=== PATIENT | male | born 1960 | race Caucasian/White ===

== ENCOUNTER 2017-09-06 05:32 | Inpatient (IN) | payer BC ==
[~2017-09-06] VITALS: Ht 182.9 cm; Wt 81.2 kg
[2017-09-06] MEDS ORDERED: METOPROLOL TARTRATE 25 MG TAB PO PRN (06:30)
[2017-09-06] MEDS ORDERED: CHLORHEXIDINE GLUCONATE 2 % 1 PACK (2 CLOTHS) TOPICAL PRN (06:30)
[2017-09-06] MEDS ORDERED: POVIDONE IODINE 7.5% SCRUB 118 ML BOTTLE TOPICAL SCH (06:30)
[2017-09-06] MEDS ORDERED: DEXAMETHASONE SOD PHOS 20 MG/5 ML VIAL IV SCH (06:30)
[2017-09-06] MEDS ORDERED: INSULIN HUMAN REGULAR 1,000 UNITS/10 ML VIAL SQ PRN (06:30)
[2017-09-06] MEDS ORDERED: SODIUM CHLORID 0.9% 500 ML IV PRN (06:30)
[2017-09-06] MEDS ORDERED: ceFAZolin 2 GM PREMIX 50 ML IV SCH (06:30)
[2017-09-06] MEDS ORDERED: CHLORHEXIDINE GLUCONATE 4% SOLN 120 ML BTL TOPICAL SCH (06:30)
[2017-09-06] MEDS ORDERED: LACTATED RINGER'S 1000 ML IV PRN (06:30)
[2017-09-06] MEDS ORDERED: POVIDONE IODINE 5% (ANTISEPSIS KIT) 4 APPLICATIONS EACH NARE PRN (06:30)
[2017-09-06] MEDS ORDERED: HYDR-3288 PO (06:59)
[2017-09-06] MEDS ORDERED: ONDANSETRON HCL 4 MG/2 ML VIAL IVP PRN (07:00)
[2017-09-06] MEDS ORDERED: ENOX40P SQ (07:00)
[2017-09-06] MEDS ORDERED: diphenhydrAMINE HCL 50 MG/ML VIAL IV PUSH PRN (07:00)
[2017-09-06] MEDS ORDERED: SODIUM CHLORIDE 0.9% FLUSH 5 ML FLUSH IVF PRN (07:00)
[2017-09-06] MEDS ORDERED: BISACODYL 10 MG SUPP RECTAL PRN (07:00)
[2017-09-06] MEDS ORDERED: ASPI81CH37 CHEW (07:00)
[2017-09-06] MEDS ORDERED: ACETAMINOPHEN/HYDROcodone 325 MG/7.5 MG TAB PO PRN (07:00)
[2017-09-06] MEDS ORDERED: Post-op Orders (for Pharmacy) MISC XX ONE (07:00)
[2017-09-06] MEDS ORDERED: MORPHINE SULFATE 4 MG/ML INJ IV PUSH PRN (07:00)
[2017-09-06] MEDS ORDERED: GENTAMICIN SULFATE 80 MG/2 ML VIAL ONE (07:02)
[2017-09-06] MEDS: VANCOMYCIN 1000 MG/NS 250 ML (for <70 kg) IV SCH ×2 (08:00)
[2017-09-06] MEDS ORDERED: ROPIVACAINE 0.5% PF INJ 30 ML VIAL ONE (08:04)
[2017-09-06] MEDS ORDERED: BUPIVACAINE HCL PF 0.5% 30 ML VIAL ONE (08:12)
[2017-09-06] MEDS ORDERED: DEXAMETHASONE SOD PHOS PF 10 MG/ML VIAL ONE (08:20)
[2017-09-06] MEDS ORDERED: TRANEXAMIC PERI-ARTICULAR 3,000 MG/NS 100 ML P-ARTICULR SCH ×2 (08:30)
[2017-09-06] MEDS ORDERED: ROPIVACAINE PERI-ARTICULAR INJECTION. P-ARTICULR SCH ×5 (08:30)
[2017-09-06] MEDS ORDERED: TRANEXAMIC ACID IV SCH (08:30)
[2017-09-06] MEDS ORDERED: SODIUM CHLORIDE 0.9% IV SCH (08:30)
[2017-09-06] MEDS: SODIUM CHLORIDE 0.9% FLUSH 5 ML FLUSH IVF SCH ×2 (09:00→20:46)
[2017-09-06] MEDS ORDERED: DO NOT ADM ANY ANTICOAGULANT DRUGS PRN (10:10)
--- NOTE | 2017-09-06 10:10 | MP ---
cc: MAGDALENA MOYA M.D. DATE OF SURGERY: 09/06/2017 PREOPERATIVE DIAGNOSIS Left knee osteoarthritis. POSTOPERATIVE DIAGNOSIS Left knee osteoarthritis. PROCEDURE Left total knee arthroplasty. SURGEON Dr. Magdalena Moya. FRUIT LOADER MACHINE OPERATOR Magdalena Hamilton PA-C. ANESTHESIA Spinal with an adductor canal femoral nerve block. ESTIMATED BLOOD LOSS 50 cc. TOURNIQUET TIME 34 minutes at 250 mmHg. COMPLICATIONS None. IMPLANTS USED DePuy Epomune size 7 posterior stabilized femoral component, size 8 rotating platform tibia baseplate, size 7 mm polyethylene tibial insert, size 41 patella. JUSTIFICATION This patient is a 57-year-old male with a history of severe end-stage osteoarthritis involving the left knee. He has severe disabling pain with standing, walking, ambulation and weightbearing activities and even severe pain at rest. He has failed greater than 3 months of nonoperative conservative treatment to include medication therapy, injections, ambulatory assisted aids, home exercise program and activity modification. The patient is not overweight. X-rays of the left knee revealed severe end-stage osteoarthritis with joint space narrowing, subchondral sclerosis, subchondral cysts, osteophyte formation and varus deformity. The patient was counseled as to the risks, benefits and alternatives to a total knee arthroplasty. The risks were discussed which include but are not limited to anesthesia, bleeding, infection, damage to nerves and blood vessels, pain, stiffness, failure of components, blood clot, pulmonary embolism and . The patient's pain is severe. He favored the benefits over the risks and did wish to proceed with surgery. PROCEDURE IN DETAIL Written consent was obtained. The patient was identified by name, taken to the operating room and placed supine on the operating table. Spinal anesthesia was administered as well as two grams of IV Ancef and one gram of IV vancomycin. A well-padded tourniquet was placed on the left thigh, the left lower extremity prepped and draped using isopropyl alcohol, Hibiclens solution and ChloraPrep solution. After a timeout was performed an Esmarch bandage was used to exsanguinate the left lower extremity. The tourniquet was inflated to 250 mmHg. A longitudinal incision was made over the anterior aspect of the left knee medial parapatellar arthrotomy was performed. The patella was everted. The patellar resection guide was used to resect approximately 9 mm of patella. The size 41 mm guide was placed. Three drill holes were placed and the 41 mm trial fit well. Attention was turned to the femur where an intramedullary guide dorothy was placed. The distal femoral guide was set to remove 10 mm of distal femur 5 degrees off the anatomic valgus axis alignment. An oscillating saw was used to perform a distal femoral cut. Attention was turned to the tibia where an extramedullary tibial guide was set to resect 5 mm off the lowest portion of the medial tibial plateau. The tibial guide was pinned in place and tibial cut was performed. A 5 mm spacer block showed full extension. Attention was turned back to the femur where the AP sizing block measured a size 7. The anterior reference 3 degree external rotation guide was used to pin a size [address] The anterior, posterior and chamfer cuts were performed. A size 7 PCL box guide was pinned in place and the PCL was box cut with an oscillating saw. The medial and lateral meniscus remnants were removed as well as bone and soft tissue debris from the posterior portion of the knee. A size 8 tibial baseplate was pinned in place and the tibia was drilled and punch. The trial components were evaluated and final components cemented in place. With the current components the leg could achieve full extension to 0 degrees and flexion to 140. No evidence of tibial lift-off. Varus-valgus balance appeared appropriate and symmetric. The patella was noted to track centrally. The tourniquet was deflated. Bovie cautery was used for hemostasis. The surgical wound was thoroughly irrigated with sterile saline pulse lavage antibiotic-impregnated solution. The arthrotomy incision was closed with #1 Vicryl suture, the subcutaneous layer with 2-0 Vicryl suture and skin was closed with Dermabond. Sterile dressing was applied. The patient tolerated the procedure well with no intraoperative complications noted. Magdalena Hamilton, physician pathology assistant certified, was present during the entire procedure to include patient positioning and the procedure itself. The medical necessity of the physician pathology assistant was indicated in this case due to the complexity of the procedure. He assisted with manipulation of the leg and also retraction of muscle, tendon, bone and neurovascular structures. He assisted with preparation of bone and also implantation of the prosthetic replacement. MD KRISTINE Herrmann/ROHAN /9:45 AM /12:17 PM
[2017-09-06] MEDS: SODIUM CHLOR 0.9% 1000 ML INJ 1,000 ML IV SCH ×2 (10:58→18:17)
--- NOTE | 2017-09-06 11:19 | RADRPT ---
EXAM DATE/TIME: 09/06/2017 10:45 [facility] COMPARISON: No previous studies available for comparison. INDICATIONS : Post op left knee. MEDICAL HISTORY : None. SURGICAL HISTORY : None. ENCOUNTER: Initial ACUITY: 1 day PAIN SCORE: 4/10 LOCATION: Left Knee FINDINGS: Two view examination of the left knee demonstrates total knee arthroplasty. All 3 components are perf ectly positioned. No fracture. Expected regional postoperative air. CONCLUSION: Appropriate postoperative appearance of the left knee status post total arthroplasty. Eleuterio Josue MD on September 06, 2017 at 11:17 Board Certified Radiologist. This report was verified electronically.
[2017-09-06] MEDS ORDERED: MIDAZOLAM HCL 2 MG/2 ML VIAL IV ONE (12:00)
[2017-09-06] MEDS ORDERED: PROPOFOL 200 MG/20 ML AMP IV ONE (12:00)
[2017-09-06] MEDS ORDERED: ONDANSETRON HCL 4 MG/2 ML VIAL IV PUSH ONE (12:00)
[2017-09-06] MEDS ORDERED: ePHEDrine/NS 25 MG/5 ML SYR IV ONE (12:00)
[2017-09-06 13:10] VITALS: BP 139/73; PULSE 64; RESP 18; TEMP 96.3; O2SAT 99
--- NOTE | 2017-09-06 13:12 | PD.CONS ---
HPI Service [facility] Hospitalists Consult Requested By Orthopedic services Reason for Consult Medical management Primary Care Physician Ever Galvan MD Diagnoses: History of Present Illness Written by Nai Pittman, acting as scribe for Dr. Ruggiero on 09/06/17 at 13: 11. This is a 57-year-old male with past medical history significant for osteoarthritis and chronic low back pain who was admitted for elective left total knee replacement surgery performed by Dr. Rivers earlier today. He reports chronic right knee pain secondary to osteoarthritis with new onset left knee pain in the past 6 months which was suddenly progressive to the point that he had ongoing pain at rest as well as with ambulation. Patient failed multiple attempts at outpatient treatment for left knee pain including time, extensive physical therapy and cortisone injections. Hospitalist service is consulted for medical management. Patient reports only a dull ache in the left knee at present. States he is comfortable. He denies any other complaints at this time. He plans to be discharged home with home health physical therapy. He already has CPM unit at his house. Review of Systems Except as stated in HPI: all other systems reviewed are Neg Past Family Social History Allergies: Coded Allergies: No Known Allergies (Unverified , 09/06/17) Past Medical History Osteoarthritis Low back pain Past Surgical History Left knee meniscectomy 2013 Left arthroscopic rotator cuff repair 2013 Left knee arthroscopy Right shoulder surgery 1986 Right knee arthroscopy 1978 Reported Medications Patient denies taking any medications at home Active Ordered Medications Current Medications Medications (Trade) Dose Ordered Sig/Na Route Start Time Stop Time Status Last Admin Lactated Ringer's 1,000 ml @ 30 mls/hr Q24H PRN IV 09/06/17 06:30 09/09/17 06:29 09/06/17 07:00 Sodium Chloride 500 ml @ 30 mls/hr [id number] PRN IV 09/06/17 06:30 09/09/17 06:29 (Lopressor) 25 mg PORK CUTLET MAKER PRN PO 09/06/17 06:30 09/09/17 06:29 (Betadine 5% Antisepsis Kit) 1 applic PORK CUTLET MAKER PRN EACH NARE 09/06/17 06:30 09/09/17 06:29 09/06/17 07:10 (Chlorhexidine 2% Cloth) 3 pack PORK CUTLET MAKER PRN TOPICAL 09/06/17 06:30 09/09/17 06:29 09/06/17 07:20 (NovoLIN R INJ) See Protocol Table ... PORK CUTLET MAKER PRN SQ 09/06/17 06:30 09/09/17 06:29 (Betadine 7.5% Scrub) 1 applic ONCE TOPICAL 09/06/17 06:30 09/09/17 06:29 (Hibiclens 4% Top Soln) 1 applic ONCE TOPICAL 09/06/17 06:30 09/09/17 06:29 Cefazolin Sodium/ Dextrose 50 ml @ 100 mls/hr PORK CUTLET MAKER IV 09/06/17 06:30 09/07/17 06:29 09/06/17 07:55 Vancomycin HCl 1000 mg/Sodium Chloride 250 ml @ 250 mls/hr PORK CUTLET MAKER IV 09/06/17 06:30 09/07/17 06:29 09/06/17 08:00 Tranexamic Acid 1218 mg/Sodium Chloride 112.18 ml @ 200 mls/ hr ONCE IV 09/06/17 08:30 09/06/17 14:30 09/06/17 08:15 Ropivacaine 24.63 ml/Ketorolac Tromethamine 30 mg/Epinephrine HCl 0.5 mg/ Clonidine 80 mcg/ Sodium Chloride 100 ml @ 200 mls/hr ONCE P-ARTICULR 09/06/17 08:30 09/06/17 14:30 09/06/17 08:53 Tranexamic Acid 3000 mg/Sodium Chloride 130 ml @ 260 mls/hr ONCE P-ARTICULR 09/06/17 08:30 09/06/17 14:30 09/06/17 08:53 (Decadron Inj) 10 mg PORK CUTLET MAKER IV 09/06/17 06:30 09/07/17 06:29 09/06/17 07:19 Sodium Chloride 1,000 ml @ 100 mls/hr Q10H IV 09/06/17 08:30 09/06/17 10:58 (NS Flush) 2 ml UNSCH PRN IVF 09/06/17 07:00 (NS Flush) 2 ml BID IVF 09/06/17 09:00 Cefazolin Sodium 1000 mg/Sodium Chloride 100 ml @ 200 mls/hr Q6H IV 09/06/17 14:00 09/07/17 02:29 (Lovenox Inj) 40 mg Q24H SQ 09/07/17 09:00 09/16/17 09:01 (Morphine Inj) 3 mg Q3H PRN IV PUSH 09/06/17 07:00 ([place] 7.5-325 Mg) 1 tab Q4H PRN PO 09/06/17 07:00 ([place] 7.5-325 Mg) 2 tab Q4H PRN PO 09/06/17 07:00 (Theragran M Tab) 1 tab BID PO 09/07/17 21:00 11/06/17 20:59 (Zofran Inj) 4 mg Q6H PRN IVP 09/06/17 07:00 (Colace) 100 mg BID PO 09/07/17 21:00 (Ambien) 5 mg HS PRN PO 09/06/17 21:00 (Dulcolax Supp) 10 mg DAILY PRN RECTAL 09/06/17 07:00 (Benadryl Inj) 25 mg Q6H PRN IV PUSH 09/06/17 07:00 Miscellaneous Information ALL NURSING DEPARTME... UNSCH PRN .XX 09/06/17 10:10 09/07/17 10:09 Family History Heart disease, maternal grandfather, brother [place] at age 52 Social History Patient denies any tobacco use, alcohol consumption or illicit drug use. Physical Exam Vital Signs Vital Signs Date Time Temp Pulse Resp B/P (MAP) Pulse Ox O2 Delivery O2 Flow Rate FiO2 09/06/17 10:10 97.9 65 19 116/59 (78) 100 Nasal Cannula 3 09/06/17 06:52 98.0 63 20 114/69 (84) 98 Physical Exam GENERAL: This is a well-nourished, well-developed patient, in no apparent distress. Awake and alert. at the bedside. SKIN: No rashes, ecchymoses or lesions. Cool and dry. HEAD: Atraumatic. Normocephalic. No temporal or scalp tenderness. EYES: Pupils equal round and reactive. Extraocular motions intact. No scleral icterus. No injection or drainage. ENT: Nose without bleeding, purulent drainage. Throat without erythema, tonsillar hypertrophy or exudate. Uvula midline. Airway patent. NECK: Trachea midline. No lymphadenopathy. Supple, nontender, no meningeal signs. CARDIOVASCULAR: Regular rate and rhythm without murmurs, gallops, or rubs. RESPIRATORY: Clear to auscultation. Breath sounds equal bilaterally. No wheezes , rales, or rhonchi. GASTROINTESTINAL: Abdomen soft, non-tender, nondistended. No hepato-splenomegaly , or palpable masses. No guarding. MUSCULOSKELETAL: Left knee in postop dressings which appear C/D/I in CPM. Distal pulses palpable. NEUROLOGICAL: Awake and alert. Able to move all extremities except for left lower extremity which is in CPM. Nonfocal. Normal speech. Imaging Last Impressions Knee X-Ray 09/06/17 0657 Signed Impressions: Service Date/Time: Wednesday, September 06, 2017 10:45 - CONCLUSION: Appropriate postoperative appearance of the left knee status post total arthroplasty. Eleuterio Josue MD Assessment and Plan Assessment and Plan 57-year-old male with past medical history significant for osteoarthritis of the left knee who failed attempts at outpatient treatment and was admitted for elective left total knee replacement surgery performed by Dr. Rivers earlier today. OA left knee failed outpatient treatment s/p elective Left TKR - Management per orthopedic service - Pain management with bowel regimen - PT eval/treatment - monitor postoperative wound - monitor CBC to assess for postoperative anemia DVT prophylaxis - Lovenox sq per Ortho Thank you very kindly for this consultation. Will gladly follow this patient along with you. This note was transcribed by eneida Pittman. I, Dr. Nahum Ruggiero personally performed the history, physical exam, and medical decision making; and confirmed the accuracy of the information in the transcribed note. Authenticated by Dr. Nahum Ruggiero on 09/06/17 at 13:11. Code Status Full code Discussed Condition With Patient, , nursing staff Nai Pittman Sep 06, 2017 13:12 Nahum Ruggiero MD Sep 06, 2017 13:13
--- NOTE | 2017-09-06 13:32 | HHI.FF ---
Face to Face Verification Diagnosis: (1) Primary localized osteoarthrosis, lower leg Physical Therapy Gait training, Safety evaluation, Transfer training, bed to chair Knee: Total knee, Protocol: Left, Full weight bearing Left LE Weight Bearing: WB as tolerated Nursing RN: 3 days/week x 2 weeks Nursing: Nikita teaching, Dressing changes Dressing Changes: Daily dressing change I have seen patient Nacho Lam on 09/06/17. My clinical findings support the need for the requested home health care services because: Limited ability to care for self High risk of falls I certify that my clinical findings support that this patient is homebound because: Post-op weakness Unsteady gait/balance Ferny Hamilton Sep 06, 2017 13:32
--- NOTE | 2017-09-06 13:32 | HHI.DCPOC ---
Discharge Care Plan Diagnosis: (1) Primary localized osteoarthrosis, lower leg Your Health Problems Are: Difficulty with ADL Goals to Promote Your Health * To prevent worsening of your condition and complications * To maintain your health at the optimal level Directions to Meet Your Goals Take your medications as prescribed Follow your dietary instruction Follow activity as directed Keep your appointments as scheduled Take your immunizations and boosters as scheduled If your symptoms worsen call your PCP, if no PCP go to Urgent Care Center or Emergency Room Smoking is Dangerous to Your Health. Avoid second hand smoke Call the 24-hour hour crisis hotline for domestic abuse at Ferny Hamilton Sep 06, 2017 13:32
[2017-09-06] MEDS ORDERED: COMMODE 3-IN-11 MIS (13:34)
[2017-09-06] MEDS ORDERED: WALKER WHEELS/F1 MIS (13:34)
[2017-09-06] MEDS ORDERED: CPMMACHINE (13:34)
[2017-09-06 16:00] VITALS: BP 117/67; PULSE 82; RESP 18; TEMP 96.3; O2SAT 99
[2017-09-06 20:00] VITALS: BP 107/59; PULSE 76; RESP 17; TEMP 96.7; O2SAT 97
[2017-09-06] MEDS ORDERED: ZOLPIDEM TARTRATE 5 MG TAB PO PRN (21:00)
[2017-09-07 00:52] VITALS: BP 115/58; PULSE 80; RESP 16; TEMP 97.5; O2SAT 98
[2017-09-07] MEDS: SODIUM CHLOR 0.9% 1000 ML INJ 1,000 ML IV SCH (04:30)
[2017-09-07 04:40] VITALS: BP 103/59; PULSE 68; RESP 16; TEMP 97.7; O2SAT 97
[2017-09-07] MEDS: ACETAMINOPHEN/HYDROcodone 325 MG/7.5 MG TAB PO PRN ×3 (05:37→15:29)
[2017-09-07 08:00] VITALS: BP 125/65; PULSE 72; RESP 16; TEMP 96.6; O2SAT 99
[2017-09-07] MEDS: SODIUM CHLORIDE 0.9% FLUSH 5 ML FLUSH IVF SCH (09:00)
[2017-09-07] MEDS ORDERED: ENOXAPARIN SODIUM 40 MG/0.4 ML SYRINGE SQ SCH (09:00)
--- NOTE | 2017-09-07 09:13 | PD.ORT.PN ---
Subjective Subjective Remarks doing well. walked yesterday without difficulty. Objective Vitals Vital Signs Date Time Temp Pulse Resp B/P (MAP) Pulse Ox O2 Delivery O2 Flow Rate FiO2 09/07/17 08:00 96.6 72 16 125/65 (85) 99 09/07/17 04:40 97.7 68 16 103/59 (74) 97 09/07/17 00:52 97.5 80 16 115/58 (77) 98 09/06/17 20:00 96.7 76 17 107/59 (75) 97 09/06/17 16:00 96.3 82 18 117/67 (84) 99 09/06/17 15:28 Room Air 09/06/17 13:10 96.3 64 18 139/73 (95) 99 09/06/17 12:40 97.6 66 16 116/57 (76) 98 Room Air 09/06/17 12:30 66 16 114/60 (78) 97 Room Air 09/06/17 12:15 67 16 110/61 (77) 97 Room Air 09/06/17 12:00 68 16 104/59 (74) 97 Room Air 09/06/17 11:45 69 16 101/54 (70) 96 Room Air 09/06/17 11:30 66 15 103/57 (72) 96 Room Air 09/06/17 11:15 63 15 106/55 (72) 95 Room Air 09/06/17 11:00 62 15 103/59 (74) 100 Nasal Cannula 2 09/06/17 10:45 63 15 102/56 (71) 99 Nasal Cannula 2 09/06/17 10:30 64 15 105/58 (74) 99 Nasal Cannula 2 09/06/17 10:15 62 15 108/59 (75) 98 Nasal Cannula 2 09/06/17 10:10 97.9 65 19 116/59 (78) 100 Nasal Cannula 3 I/O 09/06/17 09/06/17 09/06/17 09/07/17 09/07/17 09/07/17 07:00 15:00 23:00 07:00 15:00 23:00 Intake Total 500 ml 360 ml Output Total 950 ml 900 ml Balance -450 ml -540 ml Intake Oral 360 ml IV Total 500 ml Output Urine Total 900 ml 900 ml Estimated Blood Loss 50 ml # Bowel Movements 0 Objective Remarks in bed, nad, using cpm incision no erythema, no drainage neg homans nvi Assessment & Plan Ortho Post Op Day #: 1 Problem List: Assessment and Plan s/p L TKA wbat daily dressing changes lovenox d/c planning home with hhc and pt - cleared if does well with PT rx in chart f/up dr. frazier 2 weeks Ferny Hamilton Sep 07, 2017 09:13
[2017-09-07 09:17] LABS: HEMATOCRIT 34.3 % (39.0-51.0); MEAN CELL VOLUME 92.5 FL (80.0-100.0); MEAN CORPUSCULAR HEMOGLOBIN 31.6 PG (27.0-34.0); MEAN CORPUSCULAR HGB CONC 34.1 % (32.0-36.0); PLATELET COUNT 197 TH/MM3 (150-450); RED CELL DISTRIBUTION WIDTH 12.6 % (11.6-17.2); REVIEW FLAG FINAL; WHITE BLOOD COUNT 16.6 TH/MM3 (4.0-11.0)
[2017-09-07 10:22] LABS: POTASSIUM 4.4 MEQ/L (3.5-5.1)
[2017-09-07 12:00] VITALS: BP 121/66; PULSE 67; RESP 16; TEMP 96.4; O2SAT 100
[2017-09-07] MEDS ORDERED: DOCUSATE SODIUM 100 MG CAP PO SCH (21:00)
[2017-09-07] MEDS ORDERED: MULTIVITAMINS/MINERALS THERAPEUTIC TAB PO SCH (21:00)
== END 2017-09-07 16:26 | disposition home health service (06) | DRG 470 ==
LOC: HSDI 05:32 → N06B 13:04
PROVIDERS: ADMIT Orthopaedic Surgery Sports Medicine; ATTEND Orthopaedic Surgery Sports Medicine
PROC: 3E0T3BZ Introduction of Anesthetic Agent into Peripheral Nerves and Plexi, Percutaneous Approach (ICD-10-PCS; 2017-09-06)
PROC: 0SRD0J9 Replacement of Left Knee Joint with Synthetic Substitute, Cemented, Open Approach (ICD-10-PCS; principal; 2017-09-06 08:02)
DX: M17.12 Unilateral primary osteoarthritis, left knee (principal); G89.29 Other chronic pain; M54.5 Low back pain
CPT/HCPCS: 73560; 80048; 85027; 86850; 86900; 86901; 94150; C1776; J0690; J0735; J1100; J1580; J1650; J1885; J2250; J2405; J2795; J3370; J7030; J7050; J7120

== ENCOUNTER → 2017-11-29 | Outpatient (CLI) | payer BC ==
[~2017-11-29] MED LIST: ASPI81CH6 CHEW; COMMODE 3-IN-11 MIS; CPMMACHINE; ENOX40P SQ; HYDR-3288 PO; WALKER WHEELS/F1 MIS
== END ==
LOC: CPRE 10:05
PROVIDERS: ATTEND Orthopaedic Surgery Sports Medicine
DX: Z01.818 Encounter for other preprocedural examination (principal)

== ENCOUNTER 2017-12-13 05:32 | Inpatient (IN) | payer BC ==
[~2017-12-13] VITALS: Ht 182.9 cm; Wt 85.3 kg
[2017-12-13] MEDS ORDERED: CHLORHEXIDINE GLUCONATE 2 % 1 PACK (2 CLOTHS) TOPICAL PRN (06:30)
[2017-12-13] MEDS ORDERED: METOPROLOL TARTRATE 25 MG TAB PO PRN (06:30)
[2017-12-13] MEDS ORDERED: CHLORHEXIDINE GLUCONATE 4% SOLN 120 ML BTL TOPICAL SCH (06:30)
[2017-12-13] MEDS ORDERED: ceFAZolin 2 GM PREMIX 50 ML IV SCH (06:30)
[2017-12-13] MEDS ORDERED: LACTATED RINGER'S 1000 ML IV PRN (06:30)
[2017-12-13] MEDS ORDERED: DEXAMETHASONE SOD PHOS 20 MG/5 ML VIAL IV SCH (06:30)
[2017-12-13] MEDS ORDERED: POVIDONE IODINE 7.5% SCRUB 118 ML BOTTLE TOPICAL SCH (06:30)
[2017-12-13] MEDS ORDERED: VANCOMYCIN 1000 MG/NS 250 ML (for <70 kg) IV SCH ×2 (06:30)
[2017-12-13] MEDS ORDERED: SODIUM CHLORID 0.9% 500 ML IV PRN (06:30)
[2017-12-13] MEDS ORDERED: POVIDONE IODINE 5% (ANTISEPSIS KIT) 4 APPLICATIONS EACH NARE PRN (06:30)
[2017-12-13] MEDS ORDERED: HYDR-3288 PO (06:58)
[2017-12-13] MEDS ORDERED: ASPI81CH6 CHEW (06:59)
[2017-12-13] MEDS ORDERED: BISACODYL 10 MG SUPP RECTAL PRN (07:00)
[2017-12-13] MEDS ORDERED: ZOLPIDEM TARTRATE 5 MG TAB PO PRN (07:00)
[2017-12-13] MEDS ORDERED: diphenhydrAMINE HCL 50 MG/ML VIAL IV PUSH PRN (07:00)
[2017-12-13] MEDS ORDERED: MAGNESIUM HYDROXIDE SUSP 30 ML CUP PO PRN (07:00)
[2017-12-13] MEDS ORDERED: ONDANSETRON HCL 4 MG/2 ML VIAL IVP PRN (07:00)
[2017-12-13] MEDS ORDERED: MORPHINE SULFATE 4 MG/ML INJ IV PUSH PRN (07:00)
[2017-12-13] MEDS ORDERED: ACETAMINOPHEN/HYDROcodone 325 MG/7.5 MG TAB PO PRN (07:00)
[2017-12-13] MEDS ORDERED: GENTAMICIN SULFATE 80 MG/2 ML VIAL ONE (07:05)
[2017-12-13] MEDS ORDERED: TRANEXAMIC ACID IV SCH (08:30)
[2017-12-13] MEDS ORDERED: ROPIVACAINE PERI-ARTICULAR INJECTION. P-ARTICULR SCH ×5 (08:30)
[2017-12-13] MEDS ORDERED: SODIUM CHLORIDE 0.9% IV SCH (08:30)
[2017-12-13] MEDS ORDERED: TRANEXAMIC PERI-ARTICULAR 3,000 MG/NS 100 ML P-ARTICULR SCH ×2 (08:30)
[2017-12-13] MEDS ORDERED: BUPIVACAINE LIPOSOME PF 1.3% 20 ML VIAL ONE ×2 (08:43→08:44)
[2017-12-13] MEDS ORDERED: DO NOT ADM ANY ANTICOAGULANT DRUGS PRN (10:37)
[2017-12-13] MEDS ORDERED: Post-op Orders (for Pharmacy) XX ONE (10:37)
[2017-12-13] MEDS: SODIUM CHLOR 0.9% 1000 ML INJ 1,000 ML IV SCH ×2 (10:50→21:21)
--- NOTE | 2017-12-13 11:34 | RADRPT ---
EXAM DATE/TIME: 12/13/2017 11:14 [facility] COMPARISON: No previous studies available for comparison. INDICATIONS : Post-op Right knee. MEDICAL HISTORY : None. SURGICAL HISTORY : Total knee replacement, right. ENCOUNTER: Initial ACUITY: 1 day PAIN SCORE: 0/10 LOCATION: Right Knee FINDINGS: Postsurgical features of right knee arthroplasty. Arthroplasty components are in anatomic alignment. No significant acute bony fracture. Immediate postsurgical soft tissue features. CONCLUSION: 1. Status post right knee arthroplasty in anatomic alignment without significant acute bony fracture. Dakota Herrera MD on December 13, 2017 at 11:31 Board Certified Radiologist. This report was verified electronically.
--- NOTE | 2017-12-13 14:08 | HHI.DCPOC ---
Discharge Care Plan Diagnosis: (1) Primary localized osteoarthrosis, lower leg Your Health Problems Are: Difficulty with ADL Goals to Promote Your Health * To prevent worsening of your condition and complications * To maintain your health at the optimal level Directions to Meet Your Goals Take your medications as prescribed Follow your dietary instruction Follow activity as directed Keep your appointments as scheduled Take your immunizations and boosters as scheduled If your symptoms worsen call your PCP, if no PCP go to Urgent Care Center or Emergency Room Smoking is Dangerous to Your Health. Avoid second hand smoke Call the 24-hour hour crisis hotline for domestic abuse at Ferny Hamilton Dec 13, 2017 14:08
--- NOTE | 2017-12-13 14:09 | HHI.FF ---
Face to Face Verification Diagnosis: (1) Primary localized osteoarthrosis, lower leg Physical Therapy Gait training, Safety evaluation, Transfer training, bed to chair Knee: Total knee, Protocol: Right, Full weight bearing Right LE Weight Bearing: WB as tolerated Nursing RN: 3 days/week x 2 weeks Nursing: Dressing changes Dressing Changes: Daily dressing change I have seen patient Nacho Lam on 12/13/17. My clinical findings support the need for the requested home health care services because: Limited ability to care for self High risk of falls I certify that my clinical findings support that this patient is homebound because: Post-op weakness Unsteady gait/balance Ferny Hamilton Dec 13, 2017 14:09
[2017-12-13] MEDS ORDERED: CPMMACHINE (14:10)
--- NOTE | 2017-12-13 15:31 | PD.CONS ---
HPI Service [facility] Consult Requested By Dr. Ferny Rivers Reason for Consult Medical Management. Primary Care Physician Ever Galvan MD Diagnoses: History of Present Illness This is a pleasant 57 y/o male who is been followed by Orthopedic Surgery due to pain on his right knee that is been progressive and interferes with activities of daily living, with failure of conservative treatment as antiinflammatory medicines, analgesics, cortisone injection, PT, Home exercise program, activity modification, bracing, recommended for Right total knee arthroplasty performed today. seen in his bedroom in the presence of his Mrs. Chen Lam Review of Systems Constitutional: DENIES: Fever, Chills, Change in appetite Endocrine: DENIES: Heat/cold intolerance Eyes: DENIES: Blurred vision, Eye pain Except as stated in HPI: all other systems reviewed are Neg Past Family Social History Allergies: Coded Allergies: Sulfa (Sulfonamide Antibiotics) (Verified Allergy, Unknown, RASH, 12/13/17) Past Medical History OA Past Surgical History Left Total knee replacement 09/06/2017 Left Shoulder Surgery Rotator Cuff surgery Appendectomy Reported Medications Reported Meds & Active Scripts Active Aspirin Low Dose (Aspirin) 81 Mg Chew 81 Mg CHEW BID 30 Days [place] (Hydrocodone-Acetaminophen) 7.5-325 mg Tab 1-2 Tab PO Q6H PRN Active Ordered Medications Current Medications Medications (Trade) Dose Ordered Sig/Na Route Start Time Stop Time Status Last Admin (Lopressor) 25 mg WIRING MECHANIC PRN PO 12/13/17 06:30 12/16/17 06:29 (Betadine 5% Antisepsis Kit) 1 applic WIRING MECHANIC PRN EACH NARE 12/13/17 06:30 12/16/17 06:29 (Chlorhexidine 2% Cloth) 3 pack WIRING MECHANIC PRN TOPICAL 12/13/17 06:30 12/16/17 06:29 (Betadine 7.5% Scrub) 1 applic ONCE TOPICAL 12/13/17 06:30 12/16/17 06:29 (Hibiclens 4% Top Soln) 1 applic ONCE TOPICAL 12/13/17 06:30 12/16/17 06:29 Vancomycin HCl 1000 mg/Sodium Chloride 250 ml @ 250 mls/hr WIRING MECHANIC IV 12/13/17 06:30 12/16/17 06:29 12/13/17 08:49 Tranexamic Acid 1280 mg/Sodium Chloride 112.8 ml @ 200 mls/hr ONCE IV 12/13/17 08:30 12/14/17 08:29 12/13/17 09:00 Ropivacaine 24.63 ml/Ketorolac Tromethamine 30 mg/Epinephrine HCl 0.5 mg/ Clonidine 80 mcg/ Sodium Chloride 100 ml @ 200 mls/hr ONCE P-ARTICULR 12/13/17 08:30 12/14/17 08:29 12/13/17 09:26 Tranexamic Acid 3000 mg/Sodium Chloride 130 ml @ 260 mls/hr ONCE P-ARTICULR 12/13/17 08:30 12/14/17 08:29 12/13/17 09:26 (Decadron Inj) 10 mg WIRING MECHANIC IV 12/13/17 06:30 Sodium Chloride 1,000 ml @ 100 mls/hr Q10H IV 12/13/17 12:00 12/13/17 10:50 Cefazolin Sodium 1000 mg/Sodium Chloride 100 ml @ 200 mls/hr Q6H IV 12/13/17 15:00 12/14/17 03:29 12/13/17 14:32 (Lovenox Inj) 40 mg Q24H SQ 12/14/17 10:00 (Morphine Inj) 3 mg Q3H PRN IV PUSH 12/13/17 07:00 ([place] 7.5-325 Mg) 1 tab Q4H PRN PO 12/13/17 07:00 ([place] 7.5-325 Mg) 2 tab Q4H PRN PO 12/13/17 07:00 12/13/17 12:40 (Theragran M Tab) 1 tab BID PO 12/14/17 21:00 02/12/18 20:59 (Zofran Inj) 4 mg Q6H PRN IVP 12/13/17 07:00 (Colace) 100 mg BID PO 12/14/17 21:00 (Ambien) 5 mg HS PRN PO 12/13/17 07:00 (Dulcolax Supp) 10 mg DAILY PRN RECTAL 12/13/17 07:00 (Milk Of Magnesia Liq) 30 ml DAILY PRN PO 12/13/17 07:00 (Benadryl Inj) 25 mg Q6H PRN IV PUSH 12/13/17 07:00 Miscellaneous Information ALL NURSING DEPARTME... UNSCH PRN .XX 12/13/17 10:37 12/14/17 10:36 Family History Brother with CAD Social History Denies any toxic habits. Works as a construction services technician. Lives with his . Physical Exam Vital Signs Vital Signs Date Time Temp Pulse Resp B/P (MAP) Pulse Ox O2 Delivery O2 Flow Rate FiO2 12/13/17 14:32 74 18 124/66 (85) 99 Room Air 12/13/17 11:15 58 18 108/58 (75) 96 Room Air 12/13/17 11:00 59 18 106/56 (73) 96 Room Air 12/13/17 10:45 61 18 110/60 (77) 96 Room Air 12/13/17 10:33 97.7 62 18 119/58 (78) 97 Room Air 12/13/17 07:25 97.5 57 16 111/61 (78) 98 Physical Exam GENERAL: well developed in no distress. SKIN: No rashes, ecchymoses or lesions. Cool and dry. HEAD: Atraumatic. Normocephalic. No temporal or scalp tenderness. EYES: Pupils equal round and reactive. Extraocular motions intact. No scleral icterus. No injection or drainage. ENT: Nose without bleeding, purulent drainage or septal hematoma. Throat without erythema, tonsillar hypertrophy or exudate. Uvula midline. Airway patent. NECK: Trachea midline. No JVD or lymphadenopathy. Supple, nontender, no meningeal signs. CARDIOVASCULAR: Regular rate and rhythm without murmurs, gallops, or rubs. RESPIRATORY: Clear to auscultation. Breath sounds equal bilaterally. No wheezes , rales, or rhonchi. GASTROINTESTINAL: Abdomen soft, non-tender, nondistended. No hepato-splenomegaly , or palpable masses. No guarding. MUSCULOSKELETAL: Extremities without clubbing,Right leg with Orthotics in place. NEUROLOGICAL: Awake and alert. No focal deficits. Imaging Last Impressions Knee X-Ray 12/13/17 0656 Signed Impressions: Service Date/Time: Wednesday, December 13, 2017 11:14 - CONCLUSION: 1. Status post right knee arthroplasty in anatomic alignment without significant acute bony fracture. Dakota Herrera MD Assessment and Plan Assessment and Plan 1. Severe OA of the Right knee status post Right total knee arthroplasty. 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 2. Chronic low back pain at this time stable he has pain medicine already in chart Complete in house laboratory DVT prophylaxis as per Orthopedic oral and maxillofacial surgery appreciated for this consult Code Status Full code Discussed Condition With patient and his . Ritchie Stein MD Dec 13, 2017 15:31
[2017-12-13 16:00] VITALS: BP 114/61; PULSE 70; RESP 18; TEMP 96.2; O2SAT 97
[2017-12-13] MEDS: ACETAMINOPHEN/HYDROcodone 325 MG/7.5 MG TAB PO PRN (18:01)
[2017-12-13 20:00] VITALS: BP 114/67; PULSE 68; RESP 16; TEMP 96.7; O2SAT 96
[2017-12-14 00:32] VITALS: BP 100/49; PULSE 67; RESP 18; TEMP 96.8; O2SAT 99
[2017-12-14 03:37] VITALS: BP 119/55; PULSE 65; RESP 17; TEMP 96.7; O2SAT 98
[2017-12-14 06:57] LABS: HEMATOCRIT 34.7 % (39.0-51.0); HEMOGLOBIN 12.3 GM/DL (13.0-17.0); MEAN CELL VOLUME 86.2 FL (80.0-100.0); MEAN CORPUSCULAR HEMOGLOBIN 30.7 PG (27.0-34.0); MEAN CORPUSCULAR HGB CONC 35.6 % (32.0-36.0); MEAN PLATELET VOLUME 7.1 FL (7.0-11.0); PLATELET COUNT 195 TH/MM3 (150-450); RED BLOOD COUNT 4.03 MIL/MM3 (4.50-5.90); RED CELL DISTRIBUTION WIDTH 13.1 % (11.6-17.2); WHITE BLOOD COUNT 14.1 TH/MM3 (4.0-11.0)
[2017-12-14 07:15] LABS: BICARBONATE 24.7 MEQ/L (21.0-32.0); CALCIUM 8.7 MG/DL (8.5-10.1); CREATININE 0.86 MG/DL (0.60-1.30)
[2017-12-14 08:00] VITALS: BP 109/60; PULSE 63; RESP 18; TEMP 95.9; O2SAT 98
[2017-12-14] MEDS: SODIUM CHLOR 0.9% 1000 ML INJ 1,000 ML IV SCH (08:00)
--- NOTE | 2017-12-14 08:18 | PD.ORT.PN ---
Subjective Post Op Day #: 1 Subjective Remarks doing very well. pain controlled. ready to go home. Objective Vitals Vital Signs Date Time Temp Pulse Resp B/P (MAP) Pulse Ox O2 Delivery O2 Flow Rate FiO2 12/14/17 03:37 96.7 65 17 119/55 (76) 98 12/14/17 00:32 96.8 67 18 100/49 (66) 99 12/13/17 20:00 96.7 68 16 114/67 (83) 96 12/13/17 19:10 18 12/13/17 16:00 96.2 70 18 114/61 (78) 97 12/13/17 14:32 74 18 124/66 (85) 99 Room Air 12/13/17 11:15 58 18 108/58 (75) 96 Room Air 12/13/17 11:00 59 18 106/56 (73) 96 Room Air 12/13/17 10:45 61 18 110/60 (77) 96 Room Air 12/13/17 10:33 97.7 62 18 119/58 (78) 97 Room Air I/O 12/13/17 12/13/17 12/13/17 12/14/17 12/14/17 12/14/17 07:00 15:00 23:00 07:00 15:00 23:00 Intake Total 1250 ml 360 ml 240 ml Output Total 850 ml 450 ml Balance 400 ml 360 ml -210 ml Intake Oral 360 ml 240 ml IV Total 1250 ml Output Urine Total 800 ml 450 ml Estimated Blood Loss 50 ml # Voids 0 # Bowel Movements 0 0 Result Diagram: 12/14/17 0545 12/14/17 0545 Objective Remarks in chair, nad incision no erythema, no drainage neg homans nvi Assessment & Plan Ortho Post Op Day #: 1 Problem List: Assessment and Plan s/p R TKA wbat daily dressing changes lovenox, d/c on [id number] d/c planning home with [facility] and pt - cleared today f/up dr. frazier 2 weeks Ferny Hamilton Dec 14, 2017 08:18
[2017-12-14 08:41] VITALS: O2SAT 100
[2017-12-14] MEDS: ACETAMINOPHEN/HYDROcodone 325 MG/7.5 MG TAB PO PRN (09:45)
[2017-12-14] MEDS ORDERED: ENOXAPARIN SODIUM 40 MG/0.4 ML SYRINGE SQ SCH (10:00)
--- NOTE | 2017-12-14 13:44 | MP ---
cc: MAGDALENA MOYA DATE OF SURGERY 12/13/2017 PREOPERATIVE DIAGNOSIS Right knee osteoarthritis. POSTOPERATIVE DIAGNOSIS Right knee osteoarthritis. PROCEDURE Right total knee arthroplasty. SURGEON Dr. Magdalena Moya. MERCHANDISE SUPPORT ASSOCIATE Jose Hamilton PA-C. ANESTHESIA General with a femoral nerve block. ESTIMATED BLOOD LOSS 50 cc. TOURNIQUET TIME 25 minutes at 250 mmHg. COMPLICATIONS None. IMPLANTS USED DePuy Attune, size 8 posterior stabilized femoral component, size 8 rotating platform tibial baseplate, size 7 mm polyethylene tibial insert, size 41 patella. JUSTIFICATION This patient is a 57-year-old male with a history of severe osteoarthritis involving the right knee. He has severe disabling pain with standing, walking ambulation and weightbearing activities and severe pain at rest. He has failed greater than three months of nonoperative conservative treatment to include medication therapy, injections, ambulatory assisted aids, home exercise program and activity modification. The patient is not overweight. X-rays of the right knee reveal severe end-stage osteoarthritis, [id number] joint space narrowing, subchondral sclerosis, subchondral cysts, osteophyte formation with varus deformity. The patient was counseled as to the risks, benefits and alternatives to a total knee arthroplasty. The risks were discussed which include but are not limited to anesthesia, bleeding, infection, damage to nerves, blood vessels, pain, stiffness, failure of hardware, blood clots, pulmonary embolism and even . The patient's pain is severe. He favored the benefits over the risks and he did wish to proceed with surgery. PROCEDURE IN DETAIL A written consent was obtained. The patient was identified by name, taken to the operating room and placed supine on the operating table. General anesthesia was administered as well as an ultrasound-guided femoral nerve adductor canal block. A well-padded tourniquet was placed on the right thigh. The right lower extremity was prepped and draped using isopropyl alcohol, Hibiclens solution and ChloraPrep solution. After a timeout was performed an Esmarch bandage was used to exsanguinate the right lower extremity and tourniquet inflated to 250 mmHg. A longitudinal incision was made over the anterior aspect of the right knee. A medial parapatellar arthrotomy was performed. The patella was everted. A patellar resection guide was used to resect 9 mm of patella. The size 41 mm guide was placed. Three drill holes were placed and a 41 mm trial fit well. Attention was turned to the femur where an intramedullary guide dorothy was placed. The distal femoral guide was set to remove 10 mm of distal femur 5 degrees off the anatomic valgus axis alignment. An oscillating saw was used to perform the distal femoral cut. Attention was turned to the tibia where an extramedullary tibial guide was set to remove 5 mm off the lowest portion of the medial tibial plateau. The tibial guide was pinned in place and a tibial cut was performed. A 5 mm spacer block showed full extension. Attention was turned back to the femur where an AP sizing block measured a size 8. The anterior reference 3 degree external rotation guide was used to pin a size [address] Anterior, posterior and chamfer cuts were performed. A size 8 PCL box guide was pinned in place and the PCL was box cut with an oscillating saw. The medial and lateral meniscus remnants were removed as well as bone and soft tissue debris from the posterior portion of the knee. A size 8 tibial baseplate was pinned in place and the tibia was drilled and punched. Trial components were evaluated and trial components cemented in place. With the current components the leg could achieve full extension to 0 degrees and flexion to 140. No evidence of tibial lift-off. Varus-valgus balance appeared appropriate and symmetric and the patella was noted to track centrally. With the tourniquet deflated Bovie cautery was used for hemostasis. The knee was thoroughly irrigated with sterile saline pulse lavage antibiotic-impregnated solution. The arthrotomy incision was closed with #1 Vicryl suture, the subcutaneous layer with 2-0 Vicryl suture. The skin incision was closed with Dermabond. Sterile dressing was applied. The patient tolerated the procedure well with no intraoperative complications noted. Jose Hamilton, physician speech assistant certified, was present during the entire procedure to include patient positioning and the procedure itself. The medical necessity of a physician speech assistant was indicated in this case due to the complexity of the procedure. He assisted with appropriate manipulation of the leg and also retraction of muscle, tendon, bone and neurovascular structures. He assisted with preparation of bone and also implantation of the prosthetic replacement. MD KRISTINE Herrmann/ROHAN /10:12 AM /1:26 PM
[2017-12-14] MEDS ORDERED: DOCUSATE SODIUM 100 MG CAP PO SCH (21:00)
[2017-12-14] MEDS ORDERED: MULTIVITAMINS/MINERALS THERAPEUTIC TAB PO SCH (21:00)
--- NOTE | 2017-12-18 21:05 | MD ---
cc: MAGDALENA MOYA M.D. ADMISSION DATE: 12/13/2017 DISCHARGE DATE: 12/14/2017 ADMISSION DIAGNOSIS Severe degenerative osteoarthritis right knee. DISCHARGE DIAGNOSIS: Severe degenerative osteoarthritis right knee. HISTORY OF PRESENT ILLNESS: Mr. Lam is a 57-year-old male who presented to the [facility] for evaluation by Dr. Magdalena Moya regarding his progressive right knee pain. The patient states the pain is inhibiting his exercise regimen and his ability to ambulate. He notes the pain has been bothering him for numerous years and is currently a severe aching sensation aggravated by weightbearing activity. He has no alleviating factors. In the past, he has tried medications, bracing, physical therapy, home exercises and injections without relief of symptoms. He does have history of a well-functioning left total knee arthroplasty approximately three to four months ago. He has x-ray evidence of severe degenerative osteoarthritis right knee. While in the office the patient was counseled on his diagnosis and treatment options, risks, benefits, indications were all discussed. The patient did elect proceed with surgical intervention to include a right total knee arthroplasty. Date of surgery 12/13 1018, right total knee arthroplasty. HOSPITAL COURSE: Postop after surgery the patient was admitted to [facility] where he received appropriate medical management, pain control, DVT prophylaxis as well as physical therapy. DISCHARGE: Once being discharged from the hospital the patient was cleared to go home where will receive home health care and home physical therapy. He is in stable condition. He may weight bear as tolerated. He has received daily dressing changes and has been instructed on proper wound care management. The patient has been provided prescriptions for pain control as well as DVT prophylaxis medications. He has also been provided a follow-up appointment in approximately two weeks from his date of surgery. The patient has asked appropriate questions which have been answered. The patient is cleared for discharge. Dictated by Jose Hamilton PA-C. MD KRISTINE Herrmann/ETHEL /8:19 AM /8:43 PM
== END 2017-12-14 10:54 | disposition home health service (06) | DRG 470 ==
LOC: HSDI 05:32 → N06B 15:58
PROVIDERS: ADMIT Orthopaedic Surgery Sports Medicine; ATTEND Orthopaedic Surgery Sports Medicine
PROC: 3E0T3BZ Introduction of Anesthetic Agent into Peripheral Nerves and Plexi, Percutaneous Approach (ICD-10-PCS; 2017-12-13)
PROC: 0SRC0J9 Replacement of Right Knee Joint with Synthetic Substitute, Cemented, Open Approach (ICD-10-PCS; principal; 2017-12-13 08:36)
DX: M17.11 Unilateral primary osteoarthritis, right knee (principal); M25.761 Osteophyte, right knee; M21.161 Varus deformity, not elsewhere classified, right knee; M54.5 Low back pain; G89.29 Other chronic pain; Z88.2 Allergy status to sulfonamides; Z96.652 Presence of left artificial knee joint
CPT/HCPCS: 73560; 76937; 80048; 85027; 86850; 86900; 86901; 94150; C1776; C9290; J0690; J0735; J1580; J1650; J1885; J2795; J3370; J7030; J7050; L1830